=== PATIENT | female | born 1940 | race Native Hawaiian/Other Pacific Islander ===

== ENCOUNTER → 2018-07-22 | Day surgery (SDC) | payer MEDICARE, OTHER ==
[~2018-07-22] VITALS: Ht 154.9 cm; Wt 51.4 kg
[~2018-07-22] MED LIST: 0.9% SODIUM CHLORIDE 10 ML SYRINGE IVP PRN; AMLO-511 PO; ASPI81 PO; ATOR40TA28 PO; CALC-895 PO; CLOP75 PO; DEXAMETHASONE SOD PHOS 4 MG/ML VIAL IVP ONE; DICLOFENAC SODIUM 0.1% 2.5 ML OPHTHALMIC SOLUTION OD ONE; DICLOFENAC SODIUM 0.1% 2.5 ML OPHTHALMIC SOLUTION ONE; FISH1CAP63 PO; FentaNYL CITRATE-PF 100 MCG/2 ML VIAL IVP ONE; HYALURONATE SOD/CHONDROITIN SOD 0.5 ML VIAL IO ONE; HYALURONATE SODIUM 12 MG/ML 0.8 ML SYRINGE IO ONE; HYDR25TA PO; ISOR40SR PO; LIDOCAINE HCL/PF 1% 2 ML VIAL IM ONE; LOSA1TAB42 PO; LOSA50TA25 PO; MECL-111 PO; METO25XL PO; MIDAZOLAM HCL 2 MG/2 ML VIAL IVP ONE; MOXIFLOXACIN HCL 0.5% 3 ML OPHTHALMIC SOLUTION OD ONE; MOXIFLOXACIN HCL 0.5% 3 ML OPHTHALMIC SOLUTION ONE; MULT-1251 PO; MULT-248 PO; NITR.4 SL; OMEG-107 PO; OMEG100T PO; PHENYLEPHRINE HCL 2.5% 2 ML OPHTHALMIC SOLUTION ONE; POVIDONE-IODINE 10% 15 ML SOLUTION UD TP ONE; RINGERS SOLUTION,LACTATED 500 ML IV ONE; SITA1TAB2 PO; SITA25 PO; TETRACAINE HCL VISCOUS 0.5% 0.6 ML OPHTHALMIC SOLUTION OS ONE; TROPICAMIDE 1% 2 ML OPHTHALMIC SOLUTION ONE; VITAD1000 PO
[2018-07-22] MEDS: TROPICAMIDE 1% 2 ML OPHTHALMIC SOLUTION OD SCH ×2 (09:40→09:46)
[2018-07-22] MEDS: PHENYLEPHRINE HCL 2.5% 2 ML OPHTHALMIC SOLUTION OD SCH ×2 (09:41→09:46)
[2018-07-22 09:43] LABS: GLUCOMETER DEV NAME(LOC) SDS 5; GLUCOSE,POINT OF CARE 123 MG/DL (70-110)
== END | disposition home or self-care (01) ==
LOC: SURGERY 08:48
PROVIDERS: ATTEND Specialist
DX: E11.36 Type 2 diabetes mellitus with diabetic cataract (principal); H25.011 Cortical age-related cataract, right eye; M19.90 Unspecified osteoarthritis, unspecified site; E78.00 Pure hypercholesterolemia, unspecified; I20.8 Other forms of angina pectoris; I11.9 Hypertensive heart disease without heart failure; I25.89 Other forms of chronic ischemic heart disease; M17.0 Bilateral primary osteoarthritis of knee; M19.011 Primary osteoarthritis, right shoulder; Z79.82 Long term (current) use of aspirin; Z95.1 Presence of aortocoronary bypass graft; Z87.440 Personal history of urinary (tract) infections; Z79.84 Long term (current) use of oral hypoglycemic drugs; Z98.890 Other specified postprocedural states; Z79.899 Other long term (current) drug therapy
CPT/HCPCS: 65785; 66984; 82962; 93005; C1780; J1100; J2250; J3010; J3490 ×2; J7120

== ENCOUNTER 2018-11-11 06:02 | Day surgery (SDC) | payer MEDICARE, OTHER ==
[~2018-11-11] VITALS: Ht 154.9 cm; Wt 50.9 kg
[~2018-11-11 06:02] MED LIST changes: -0.9% SODIUM CHLORIDE 10 ML SYRINGE IVP PRN; -CALC-895 PO; -CLOP75 PO; -DEXAMETHASONE SOD PHOS 4 MG/ML VIAL IVP ONE; -DICLOFENAC SODIUM 0.1% 2.5 ML OPHTHALMIC SOLUTION OD ONE; -FISH1CAP63 PO; -FentaNYL CITRATE-PF 100 MCG/2 ML VIAL IVP ONE; -HYALURONATE SOD/CHONDROITIN SOD 0.5 ML VIAL IO ONE; -HYALURONATE SODIUM 12 MG/ML 0.8 ML SYRINGE IO ONE; -ISOR40SR PO; -LIDOCAINE HCL/PF 1% 2 ML VIAL IM ONE; -LOSA50TA25 PO; -MIDAZOLAM HCL 2 MG/2 ML VIAL IVP ONE; -MOXIFLOXACIN HCL 0.5% 3 ML OPHTHALMIC SOLUTION OD ONE; -MULT-1251 PO; -OMEG100T PO; -POVIDONE-IODINE 10% 15 ML SOLUTION UD TP ONE; -RINGERS SOLUTION,LACTATED 500 ML IV ONE; -SITA1TAB2 PO; -TETRACAINE HCL VISCOUS 0.5% 0.6 ML OPHTHALMIC SOLUTION OS ONE
[2018-11-11] MEDS ORDERED: TETRACAINE HCL VISCOUS 0.5% 0.6 ML OPHTHALMIC SOLUTION OS ONE (06:03)
[2018-11-11] MEDS ORDERED: BALANCED SALT 15 ML OPHTHALMIC IRRIG.SOLN OS ONE (06:03)
[2018-11-11] MEDS ORDERED: HYALURONATE SOD/CHONDROITIN SOD 0.5 ML VIAL IO ONE (06:03)
[2018-11-11] MEDS ORDERED: POVIDONE-IODINE 10% 15 ML SOLUTION UD TP ONE (06:03)
[2018-11-11] MEDS ORDERED: DEXAMETHASONE SOD PHOS 4 MG/ML VIAL IVP ONE (06:03)
[2018-11-11] MEDS ORDERED: RINGERS SOLUTION,LACTATED 500 ML IV ONE ×2 (06:03→07:15)
[2018-11-11] MEDS ORDERED: LIDOCAINE/PF 1% 2 ML VIAL IM ONE (06:03)
[2018-11-11] MEDS ORDERED: HYALURONATE SODIUM 12 MG/ML 0.8 ML SYRINGE IO ONE (06:03)
[2018-11-11] MEDS ORDERED: DICLOFENAC SODIUM 0.1% 2.5 ML OPHTHALMIC SOLUTION OS ONE (07:00)
[2018-11-11] MEDS ORDERED: MOXIFLOXACIN HCL 0.5% 3 ML OPHTHALMIC SOLUTION OS ONE (07:00)
[2018-11-11] MEDS ORDERED: RINGERS SOLUTION,LACTATED 1,000 ML IV ONE (07:00)
[2018-11-11] MEDS: PHENYLEPHRINE HCL 2.5% 2 ML OPHTHALMIC SOLUTION OS SCH ×2 (07:04→07:10)
[2018-11-11] MEDS: TROPICAMIDE 1% 2 ML OPHTHALMIC SOLUTION OS SCH ×2 (07:04→07:09)
[2018-11-11 07:09] LABS: GLUCOMETER DEV NAME(LOC) SDS.; GLUCOSE,POINT OF CARE 130 MG/DL (70-110)
[2018-11-11] MEDS ORDERED: MIDAZOLAM HCL 2 MG/2 ML VIAL IVP ONE (12:00)
[2018-11-11] MEDS ORDERED: FentaNYL CITRATE-PF 100 MCG/2 ML VIAL IVP ONE (12:00)
== END 2018-11-11 09:45 | disposition home or self-care (01) ==
LOC: SURGERY 06:02
PROVIDERS: ATTEND Specialist
DX: E11.36 Type 2 diabetes mellitus with diabetic cataract (principal); H25.12 Age-related nuclear cataract, left eye; G89.29 Other chronic pain; E78.00 Pure hypercholesterolemia, unspecified; M19.90 Unspecified osteoarthritis, unspecified site; I20.9 Angina pectoris, unspecified; I10 Essential (primary) hypertension; Z79.01 Long term (current) use of anticoagulants; Z98.61 Coronary angioplasty status; Z98.41 Cataract extraction status, right eye; Z95.1 Presence of aortocoronary bypass graft; Z98.890 Other specified postprocedural states; Z79.82 Long term (current) use of aspirin; Z79.84 Long term (current) use of oral hypoglycemic drugs; Z79.899 Other long term (current) drug therapy
CPT/HCPCS: 66984; 82962; 93005; C1780; J1100; J2250; J3010; J3490 ×2; J7120; 65785

== ENCOUNTER 2022-08-02 16:33 | Emergency (ER) | payer MEDICARE, OTHER ==
[~2022-08-02] VITALS: Ht 152.4 cm; Wt 50.0 kg
[~2022-08-02 16:33] MED LIST changes: +AMLO-257 PO; -AMLO-511 PO; +ASPI-1450 PO; -ASPI81 PO; +CHOL100018 PO; -DICLOFENAC SODIUM 0.1% 2.5 ML OPHTHALMIC SOLUTION ONE; -HYDR25TA PO; +HYDR25TA2 PO; -MECL-111 PO; +MECL-160 PO; -MOXIFLOXACIN HCL 0.5% 3 ML OPHTHALMIC SOLUTION ONE; -NITR.4 SL; +NITR0.4T52 SL; -PHENYLEPHRINE HCL 2.5% 2 ML OPHTHALMIC SOLUTION ONE; -TROPICAMIDE 1% 2 ML OPHTHALMIC SOLUTION ONE; -VITAD1000 PO
[2022-08-02] MEDS ORDERED: PERTUSS(ACELL),DIPH,TET VAC/PF 0.5 ML SYRINGE IM. ONE (17:15)
[2022-08-02 18:51] VITALS: BP 123/56
== END 2022-08-02 21:04 | disposition home or self-care (01) ==
LOC: EMS 16:34
DX: S00.91XA Abrasion of unspecified part of head, initial encounter (principal); E11.9 Type 2 diabetes mellitus without complications; E78.5 Hyperlipidemia, unspecified; I11.0 Hypertensive heart disease with heart failure; I50.9 Heart failure, unspecified; G89.29 Other chronic pain; M17.11 Unilateral primary osteoarthritis, right knee; W19.XXXA Unspecified fall, initial encounter; Y93.89 Activity, other specified; Y92.89 Other specified places as the place of occurrence of the external cause; Y99.8 Other external cause status
CPT/HCPCS: 70450; 70486; 72125; 90471; 90715; 99284